=== PATIENT | female | born 1990 | race African-American/Black ===

== ENCOUNTER → 2020-09-15 | Emergency (ER) | payer OTHER | END | disposition E | LOC: ER 15:36 | DX: T75.1XXA Unspecified effects of drowning and nonfatal submersion, initial encounter (principal); I46.9 Cardiac arrest, cause unspecified; W73.XXXA Other specified cause of accidental non-transport drowning and submersion, initial encounter; Y92.832 Beach as the place of occurrence of the external cause ==